=== PATIENT | female | born 1960 | race Caucasian/White ===

== ENCOUNTER → 2018-01-13 | Outpatient (CLI) | payer OTHER ==
[~2018-01-13] MED LIST: CILOXAN 5 ML5 M1; NKHM; VICODIN ES 7501 TAB PO
== END | disposition home or self-care (01) ==
LOC: RAD 15:35
DX: R05 Cough (principal); R06.02 Shortness of breath; R09.89 Other specified symptoms and signs involving the circulatory and respiratory systems